=== PATIENT | female | born 1965 | race Caucasian/White ===

== ENCOUNTER → 2020-05-12 13:30 | Outpatient (CLI) | payer BC, SELFPAY ==
[2020-05-12 14:52] LABS: Hematocrit 31.8 % (36-46); Hemoglobin 9.6 g/dL (12.0-16.0); Mean Corpuscular HGB Conc 30.2 % (30-36); Mean Corpuscular Hemoglobin 22.5 PG (26-34); Mean Corpuscular Volume 74.4 fL (80-100); Platelet Count 278 X10^3/uL (150-400); Red Blood Cell Count 4.27 X10^6/uL (4.0-5.2); White Blood Cell Count 7.5 X10^3/uL (4.5-11.0)
[2020-05-12 15:49] LABS: Free T3, Triiodothyronine Free 7.52 pg/mL (2.77-5.27); Free T4, Direct Thyroxine 2.23 ng/dL (0.78-2.19)
[2020-05-12 16:09] LABS: Ferritin 13 ng/mL (11-264); Thyroid Stimulating Hormone < 0.015 uIU/mL (0.47-4.68)
[2020-05-16 13:09] LABS: Thyroid Stimulating Immunoglob 3.11 IU/L (0.00-0.55)
== END ==
PROVIDERS: PCP Naturopath; Referring Provider Naturopath; Visit Provider Naturopath
DX: E05.00 Thyrotoxicosis with diffuse goiter without thyrotoxic crisis or storm (principal); N92.0 Excessive and frequent menstruation with regular cycle; D50.9 Iron deficiency anemia, unspecified
CPT/HCPCS: 36415; 82728; 84439; 84443; 84445; 84481; 85027

== ENCOUNTER → 2020-10-10 14:30 | Outpatient (CLI) | payer BC, SELFPAY ==
[2020-10-10 15:11] LABS: Hematocrit 39.8 % (36-46); Mean Corpuscular HGB Conc 32.7 % (30-36); Mean Corpuscular Hemoglobin 27.6 PG (26-34); Mean Corpuscular Volume 84.4 fL (80-100); Platelet Count 277 X10^3/uL (150-400); Red Blood Cell Count 4.71 X10^6/uL (4.0-5.2); Red Cell Distribution Width 17.1 % (11.6-14.8); White Blood Cell Count 7.6 X10^3/uL (4.5-11.0)
[2020-10-10 16:10] LABS: Free T3, Triiodothyronine Free 5.09 pg/mL (2.77-5.27); Free T4, Direct Thyroxine 1.34 ng/dL (0.78-2.19)
[2020-10-10 16:27] LABS: Ferritin 11 ng/mL (11-264); Thyroid Stimulating Hormone < 0.015 uIU/mL (0.47-4.68)
[2020-10-12 06:25] LABS: Thyroid Stimulating Immunoglob 1.83 IU/L (0.00-0.55)
== END ==
PROVIDERS: PCP Naturopath; Referring Provider Naturopath; Visit Provider Naturopath
DX: E05.00 Thyrotoxicosis with diffuse goiter without thyrotoxic crisis or storm (principal); N92.0 Excessive and frequent menstruation with regular cycle; D50.9 Iron deficiency anemia, unspecified
CPT/HCPCS: 36415; 82728; 84439; 84443; 84445; 84481; 85027

== ENCOUNTER → 2025-01-19 14:03 | Outpatient (CLI) | payer SELFPAY | PROVIDERS: PCP Naturopath; Referring Provider Naturopath; Visit Provider Naturopath | DX: Z13.89 Encounter for screening for other disorder (principal) | CPT/HCPCS: 36415 ==